=== PATIENT | female | born 1985 | race Caucasian/White ===

== ENCOUNTER 2018-11-21 17:00 | Emergency (ER) | payer MEDICAID ==
[2018-11-21 17:04] VITALS: RESP 18; TEMP 98.8; O2SAT 99; BMI 39.0
--- NOTE | 2018-11-21 17:59 | ED PDOC ---
Arrival/HPI - General Chief Complaint: ENT Problem Historian: Patient - History of Present Illness Narrative History of Present Illness (Text): 11/21/18 17:54 Pt is a 32 yo female with a PMH of bipolar disorder, hyperlipidemia, diabetes who presents to the ED complaining of headache and an earache. Pt states the earache and headache started 4 days ago. She states the pain is pressure like and mainly in her temples. Pt also feels lethargic, but denies fever, nausea, vomiting, constipation, diarrhea. Pt states she had a sick contact, her niece also has an ear infection. Pt tried robitussin and Tylenol, but they did not help. Time/Duration: < week Symptom Onset: Sudden Symptom Course: Unchanged Quality: Pressure Severity Level: 7 Activities at Onset: Rest Context: Sitting Past Medical History - Infectious Disease Hx of Infectious Diseases: None - Tetanus Immunization Tetanus Immunization: Unknown - Cardiac Hx Cardiac Disorders: No - Pulmonary Hx Respiratory Disorders: Yes Hx Asthma: Yes - Neurological Hx Neurological Disorder: No - HEENT Hx HEENT Disorder: No - Renal Hx Renal Disorder: No - Endocrine/Metabolic Hx Endocrine Disorders: Yes Hx Diabetes Mellitus Type 2: Yes - Hematological/Oncological Hx Blood Disorders: No - Integumentary Hx Dermatological Disorder: No - Musculoskeletal/Rheumatological Hx Musculoskeletal Disorders: No - Gastrointestinal Hx Gastrointestinal Disorders: No - Genitourinary/Gynecological Hx Genitourinary Disorders: No - Psychiatric Hx Psychophysiologic Disorder: Yes Hx Anxiety: Yes Hx Bipolar Disorder: Yes Hx Depression: Yes Hx Substance Use: No - Past Surgical History Past Surgical History: No Previous - Surgical History Hx Section: Yes (x3) - Anesthesia Hx Anesthesia: No - Suicidal Assessment Feels Threatened In Home Enviroment: No Family/Social History Family/Social History: No Known Family HX Smoking Status: Never Smoked Hx Alcohol Use: No Hx Substance Use: No Hx Substance Use Treatment: No Allergies/Home Meds Allergies/Adverse Reactions: Allergies MDX Aspirin [Aspirin] Allergy (Verified 08/13/14 18:41) Home Medications: Home Meds Medication Instructions Recorded Confirmed [facility] PO DAILY 08/14/14 08/14/14 Review of Systems - Review of Systems Constitutional: Normal Eyes: Normal ENT: Hearing Changes, Sore Throat Respiratory: Normal Cardiovascular: Normal Gastrointestinal: Normal Musculoskeletal: Normal Skin: Normal Neurological: Normal Endocrine: Normal Hemo/Lymphatic: Normal Psychiatric: Normal Physical Exam Vital Signs Reviewed: Yes Vital Signs Temp Pulse Resp BP Pulse Ox 11/21/18 17:03 98.8 F 99 H 18 140/85 99 Temperature: Afebrile Blood Pressure: Normal Pulse: Regular Respiratory Rate: Normal Appearance: Positive for: Well-Appearing Mental Status: Positive for: Alert and Oriented X 3 - Systems Exam Head: Present: Atraumatic, Normocephalic Pupils: Present: PERRL Extroacular Muscles: Present: EOMI Conjunctiva: Present: Normal Ears: Present: Erythema (Left TM erythma) Mouth: Present: Moist Mucous Membranes Neck: Present: Normal Range of Motion Respiratory/Chest: Present: Clear to Auscultation Cardiovascular: Present: Regular Rate and Rhythm Abdomen: Present: Normal Bowel Sounds. No: Tenderness, Distention Upper Extremity: Present: Normal Inspection Lower Extremity: Present: Normal Inspection Neurological: Present: GCS=15, CN II-XII Intact Skin: Present: Warm, Dry, Normal Color Psychiatric: Present: Alert, Oriented x 3 Medical Decision Making ED Course and Treatment: 11/21/18 18:06 otitis media will give pt prescription for amoxicillin 500mg BID PO Pt seen, examined, assessment and plan discussed with Dr Veena Archer PGY1 - PA / [employer] / Resident Statement ANTIONE has reviewed & agrees with the documentation as recorded. ANTIONE has examined the patient and agrees with the treatment plan. Disposition/Present on Arrival - Present on Arrival Any Indicators Present on Arrival: No History of DVT/PE: No History of Uncontrolled Diabetes: No Urinary Catheter: No History of Decub. Ulcer: No History Surgical Site Infection Following: None - Disposition Have Diagnosis and Disposition been Completed?: Yes Diagnosis: Otitis media Disposition: HOME/ ROUTINE Disposition Time: 18:11 Patient Plan: Discharge Patient Problems: Current Active Problems Problem Status Onset Otitis media Acute Condition: GOOD Discharge Instructions (ExitCare): Ear Infections (Otitis Media), Ear Infections (Otitis Media) (DC) Additional Instructions: please take your Amoxicillin as prescribed Prescriptions: Amoxicillin 500 mg PO BID #14 tablet Referrals: Miriam Melendez MD [Primary Care Provider] - Follow up with primary Forms: [employer] (Turkmen)
[2018-11-21 18:52] VITALS: BP 137/76; PULSE 88
== END 2018-11-21 18:51 | disposition home or self-care (01) ==
LOC: ED 17:00
DX: H66.90 Otitis media, unspecified, unspecified ear (principal); E11.9 Type 2 diabetes mellitus without complications; E78.5 Hyperlipidemia, unspecified; F31.9 Bipolar disorder, unspecified